=== PATIENT | female | born 1960 | race Caucasian/White ===

== ENCOUNTER 2022-12-20 17:15 | Inpatient (IN) | payer MEDICARE, MEDICAID ==
[~2022-12-20] VITALS: Ht 160 cm; Wt 87.8 kg
[2022-12-20] MEDS ORDERED: methylPREDNISolone 125MG 2ML VIAL IV ONE (18:15)
[2022-12-20 18:44] LABS: BASO # 0.1 10^3/uL (0.0-0.2); BASO % 1.1 % (0.0-1.0); EOS # 0.2 10^3/uL (0.0-0.5); EOS % 3.2 % (0.0-3.0); HEMATOCRIT 47.1 % (36.0-47.0); HEMOGLOBIN 15.3 g/dl (12.0-15.5); LYMPH # 2.4 10^3/uL (1.5-5.0); LYMPH % 31.5 % (24.0-44.0); MEAN CORPUSCULAR HEMOGLOBIN 30.9 pg (27.0-33.0); MEAN CORPUSCULAR HGB CONC 32.5 g/dl (32.0-36.5); MEAN CORPUSCULAR VOLUME 95.2 fl (80.0-96.0); MONO # 0.7 10^3/uL (0.0-0.8); MONO % 9.1 % (2.0-8.0); NEUTROPHILS # 4.1 10^3/uL (1.5-8.5); NEUTROPHILS % 54.7 % (36.0-66.0); PLATELET COUNT, AUTOMATED 252 10^3/uL (150-450); RED BLOOD COUNT 4.95 10^6/uL (4.00-5.40); WHITE BLOOD COUNT 7.5 10^3/uL (4.0-10.0)
[2022-12-20 19:12] LABS: CPK CREATINE PHOSPHOKINASE 59 U/L (34-145)
[2022-12-20 19:16] LABS: ALBUMIN 3.9 G/DL (3.2-5.2); ALKALINE PHOSPHATASE 131 U/L (46-116); ALT/SGPT 36 U/L (7.0-40); AST/SGOT 28 U/L (<34); BILIRUBIN,DIRECT < 0.1 MG/DL (<0.4); BILIRUBIN,TOTAL 0.3 MG/DL (0.3-1.2); BLOOD UREA NITROGEN 20 MG/DL (9-23); CALCIUM LEVEL 8.8 MG/DL (8.3-10.6); CARBON DIOXIDE LEVEL 28 MMOL/L (20-31); CHLORIDE LEVEL 107 MMOL/L (98-107); CK-MB VALUE MASS < 1.0 NG/ML (<3.6); GLOMERULAR FILTRATION RATE > 60.0 (>45); GLUCOSE, FASTING 91 MG/DL (74-106); MB/CK RELATIVE INDEX 1.69 (< OR =4); POTASSIUM SERUM 4.6 MMOL/L (3.5-5.1); SODIUM LEVEL 141 MMOL/L (136-145); THYROID STIMULATING HORMONE 0.979 uIU/ML (0.55-4.78); THYROXINE (T4) 7.3 UG/DL (4.5-10.9); TOTAL PROTEIN 7.1 G/DL (5.7-8.2)
[2022-12-20] MEDS ORDERED: ISOVUE-370 76% 100ML VIAL As Ordered ONE (19:30)
[2022-12-20] MEDS ORDERED: amLODIPine 5 MG TAB PO SCH (21:00)
[2022-12-20] MEDS ORDERED: VITA100093 PO (22:12)
[2022-12-20] MEDS ORDERED: HOME MED LIST COMPLETE! XX SCH (22:15)
[2022-12-20] MEDS ORDERED: LEVALBUTEROL 1.25MG 0.5ML CONCENTRATE NEB NEB ONE (23:00)
[2022-12-20] MEDS ORDERED: CEPACOL LOZENGE PO PRN (23:15)
[2022-12-21] MEDS ORDERED: hydrALAZINE 20MG/ML 1ML VIAL IV ONE
[2022-12-21] MEDS ORDERED: TEMAZEPAM 7.5 MG CAP PO PRN (00:55)
[2022-12-21 01:48] VITALS: BP 159/105
[2022-12-21] MEDS ORDERED: **hydrALAZINE** 10 MG TAB PO PRN (02:05)
[2022-12-21] MEDS: ACETAMINOPHEN TAB 650MG DOSE (2X325MG) PO PRN ×2 (02:18→09:18)
[2022-12-21 02:55] VITALS: BP 154/86
[2022-12-21] MEDS ORDERED: PROCHLORPERAZINE 10MG 2ML VIAL IV ONE (04:00)
[2022-12-21] MEDS ORDERED: diphenhydrAMINE 50MG/ML VIAL IV ONE (04:00)
[2022-12-21 06:00] VITALS: BP 130/81
[2022-12-21 06:05] LABS: HEMATOCRIT 45.5 % (36.0-47.0); HEMOGLOBIN 15.1 g/dl (12.0-15.5); MEAN CORPUSCULAR HEMOGLOBIN 31.1 pg (27.0-33.0); MEAN CORPUSCULAR HGB CONC 33.2 g/dl (32.0-36.5); MEAN CORPUSCULAR VOLUME 93.6 fl (80.0-96.0); PLATELET COUNT, AUTOMATED 246 10^3/uL (150-450); RED BLOOD COUNT 4.86 10^6/uL (4.00-5.40); WHITE BLOOD COUNT 10.4 10^3/uL (4.0-10.0)
[2022-12-21 06:31] LABS: ALBUMIN 3.6 G/DL (3.2-5.2); ALKALINE PHOSPHATASE 113 U/L (46-116); ALT/SGPT 36 U/L (7.0-40); AST/SGOT 22 U/L (<34); BILIRUBIN,TOTAL 0.3 MG/DL (0.3-1.2); BLOOD UREA NITROGEN 17 MG/DL (9-23); CALCIUM LEVEL 9.2 MG/DL (8.3-10.6); CARBON DIOXIDE LEVEL 23 MMOL/L (20-31); CHLORIDE LEVEL 106 MMOL/L (98-107); CREATININE FOR GFR 0.63 MG/DL (0.55-1.30); GLOMERULAR FILTRATION RATE > 60.0 (>45); GLUCOSE, FASTING 216 MG/DL (74-106); SODIUM LEVEL 140 MMOL/L (136-145); TOTAL PROTEIN 6.8 G/DL (5.7-8.2)
[2022-12-21] MEDS ORDERED: ALBUTEROL SULFATE 2.5MG/0.5ML INH NEB SOLN NEB PRN (07:55)
[2022-12-21] MEDS ORDERED: VITAMIN D 1,000 INTERNATIONAL UNITS TABLET PO SCH (09:00)
[2022-12-21] MEDS ORDERED: ENOXAPARIN 40MG/0.4ML SYRINGE (J1650 PER 10MG) SC SCH (09:00)
[2022-12-21] MEDS ORDERED: predniSONE 20 MG TAB PO SCH (10:40)
[2022-12-21 14:00] VITALS: BP 124/77
[2022-12-21] MEDS ORDERED: PRED20TA PO (16:37)
[2022-12-21] MEDS ORDERED: VENTAER INH (16:37)
[2022-12-21] MEDS ORDERED: AMLO1TAB24 PO (16:51)
== END 2022-12-21 17:31 | disposition home or self-care (01) | DRG 203 ==
LOC: M ED 17:15 → M ED INP 22:04 → ENRESERV 23:15 → M MSPAV 12-21 01:49
PROVIDERS: ADMIT Internal Medicine; ATTEND Internal Medicine
DX: J45.901 Unspecified asthma with (acute) exacerbation (principal); F17.200 Nicotine dependence, unspecified, uncomplicated; I10 Essential (primary) hypertension; Z88.2 Allergy status to sulfonamides; Z88.8 Allergy status to other drugs, medicaments and biological substances; E78.5 Hyperlipidemia, unspecified; I34.1 Nonrheumatic mitral (valve) prolapse; E55.9 Vitamin D deficiency, unspecified; J43.9 Emphysema, unspecified